=== PATIENT | male | born 1990 | race Hispanic/Latino ===

== ENCOUNTER 2018-06-23 22:30 | Emergency (ER) | payer BC ==
--- NOTE | 2018-06-23 23:10 | RAD ---
PA AND LATERAL CHEST X-RAY: 06/23/2018 HISTORY: Heart palpitations. COMPARISON: 05/23/2017 FINDINGS: The cardiac silhouette and pulmonary vasculature are within normal limits. The lungs remain clear. There has been no interval change from the prior study. IMPRESSION: No acute cardiopulmonary process. POS: [email or web address]
--- NOTE | 2018-06-26 15:53 | EKG ---
Test Reason : Blood Pressure : / mmHG Vent. Rate : 083 BPM Atrial Rate : 083 BPM P-R Int : 132 ms QRS Dur : 084 ms QT Int : 328 ms P-R-T Axes : 056 -03 019 degrees QTc Int : 385 ms Normal sinus rhythm Normal ECG Confirmed by TYRONE CORRIGAN ([id number]), photo editor RAJENDRA APODACA ([id number]) on 06/26/2018 3:53:14 PM Referred By: Confirmed By:TYRONE CORRIGAN
== END 2018-06-23 23:14 | disposition home or self-care (01) ==
LOC: ERS 22:30
DX: F41.9 Anxiety disorder, unspecified (principal); F17.210 Nicotine dependence, cigarettes, uncomplicated
CPT/HCPCS: 71046; 93005